=== PATIENT | male | born 1960 | race Asian ===

== ENCOUNTER 2024-02-22 12:44 | Inpatient (IN) | payer MEDICARE, OTHER ==
[~2024-02-22] VITALS: Ht 162.6 cm; Wt 71.4 kg
[2024-02-22 13:16] LABS: BASOPHILS % (AUTO) 0.7 % (0.0-2.0); EOSINOPHILS # (AUTO) 0.1 K/uL (0.0-0.7); EOSINOPHILS % (AUTO) 1.6 % (0.0-6.0); HEMATOCRIT 45 % (39-51); HEMOGLOBIN 15.2 g/dL (13.5-17.5); LYMPHOCYTES # (AUTO) 0.9 K/uL (0.8-4.8); LYMPHOCYTES % (AUTO) 15.5 % (20.0-44.0); MEAN CORPUSCULAR HEMOGLOBIN 33 PG (26.0-33.0); MEAN CORPUSCULAR HGB CONC 34 g/dl (31.0-36.0); MEAN CORPUSCULAR VOLUME 97 fL (80-96); MONOCYTES # (AUTO) 0.5 K/uL (0.1-1.30); MONOCYTES % (AUTO) 8.2 % (2.0-12.0); NEUTROPHILS # (AUTO) 4.5 K/uL (1.8-8.9); PLATELET COUNT (AUTO) 166 K/uL (150-450); RED BLOOD CELL COUNT(AUTO) 4.66 MIL/uL (4.5-6.0); RED CELL DISTRIBUTION WIDTH 13.9 % (11.5-15.0); WHITE BLOOD COUNT (AUTO) 6.1 K/uL (4.3-11.0)
[2024-02-22] MEDS: METOPROLOL TARTRATE INJ 5 MG/5 ML AMPUL IV ONE (13:42)
[2024-02-22 13:43] LABS: ALANINE AMINOTRANSFERASE 31 U/L (12-78); ALBUMIN 3.4 g/dL (3.4-5.0); ALKALINE PHOSPHATASE 182 U/L (46-116); ASPARTATE AMINOTRANSFERASE 22 U/L (15-37); BILIRUBIN,DIRECT 0.2 mg/dL (0.0-0.2); BILIRUBIN,TOTAL 0.5 mg/dL (0.2-1.0); CALCIUM, SERUM 7.6 mg/dL (8.5-10.1); CARBON DIOXIDE 28 mmol/L (21-32); CHLORIDE 100 mmol/L (98-107); CREATININE 6.7 mg/dL (0.6-1.3); GLUCOSE 165 mg/dL (74-106); NT-PRO BNP 4060 pg/mL (0-125); POTASSIUM 3.5 mmol/L (3.5-5.1); SODIUM SERUM 141 mmol/L (136-145); TOTAL PROTEIN, SERUM 8.3 g/dL (6.4-8.2); UREA NITROGEN, BLOOD 25 mg/dL (7-18)
[2024-02-22] MEDS ORDERED: ASPIRIN 325 MG TABLET ONE (13:44)
[2024-02-22] MEDS: ASPIRIN 325 MG TABLET PO ONE (13:46)
[2024-02-22] MEDS ORDERED: ONDANSETRON HCL/PF 4 MG/2 ML VIAL IVP PRN (14:00)
[2024-02-22] MEDS ORDERED: TEMAZEPAM 15 MG CAPSULE PO PRN (14:00)
[2024-02-22] MEDS ORDERED: MAG HYDROX/AL HYDROX/SIMETH 30 ML UDC PO PRN (14:00)
[2024-02-22] MEDS ORDERED: HYDROCODONE/APAP 5/325MG TABLET PO PRN (14:00)
[2024-02-22] MEDS ORDERED: MAGNESIUM HYDROXIDE 30 ML UDC PO PRN (14:00)
[2024-02-22] MEDS ORDERED: NITROGLYCERIN 0.4 MG/TAB BOTTLE SL PRN (14:00)
[2024-02-22] MEDS ORDERED: ACETAMINOPHEN 325 MG TABLET PO PRN (14:00)
[2024-02-22] MEDS ORDERED: Z GUARD REMEDY 4 OZ OINT TP PRN (14:00)
[2024-02-22] MEDS ORDERED: MORPHINE SULFATE INJ 2 MG/ML DISP.SYRIN IV PRN (14:00)
[2024-02-22] MEDS ORDERED: PANT40TA49 PO (14:21)
[2024-02-22] MEDS ORDERED: CLOP75TA15 PO (14:21)
[2024-02-22] MEDS ORDERED: ATOR80TA PO (14:21)
[2024-02-22] MEDS ORDERED: APIX2.5T PO (14:21)
[2024-02-22] MEDS ORDERED: DRON400T6 PO (14:21)
[2024-02-22] MEDS ORDERED: SEVE800T28 PO (14:21)
[2024-02-22 20:00] VITALS: BP 90/72; TEMP 98.1; O2SAT 97
[2024-02-22] MEDS: ATORVASTATIN 40 MG TABLET PO SCH (21:42)
[2024-02-22] MEDS: MIDODRINE HCL (5MG) 5 MG TABLET PO SCH (21:43)
[2024-02-23] VITALS: BP 97/39; TEMP 97.7; O2SAT 99
[2024-02-23 04:00] VITALS: BP 106/84; TEMP 98; O2SAT 95
[2024-02-23 08:00] VITALS: BP 90/72; TEMP 97.7; O2SAT 99
[2024-02-23] MEDS: SEVELAMER CARBONATE 800 MG TABLET PO SCH (08:15)
[2024-02-23] MEDS: PANTOPRAZOLE 40 MG TABLET.DR PO SCH ×2 (08:15→08:19)
[2024-02-23] MEDS: CLOPIDOGREL BISULFATE 75 MG TABLET PO SCH (08:16)
[2024-02-23] MEDS: APIXABAN 2.5 MG TABLET PO SCH (08:16)
[2024-02-23] MEDS: DRONEDARONE HYDROCHLORIDE 400 MG TABLET PO SCH (08:19)
[2024-02-23 08:36] LABS: BASOPHILS # (AUTO) 0.1 K/uL (0.0-0.2); BASOPHILS % (AUTO) 0.9 % (0.0-2.0); EOSINOPHILS # (AUTO) 0.1 K/uL (0.0-0.7); EOSINOPHILS % (AUTO) 2.3 % (0.0-6.0); HEMATOCRIT 42 % (39-51); HEMOGLOBIN 13.9 g/dL (13.5-17.5); LYMPHOCYTES # (AUTO) 1.2 K/uL (0.8-4.8); LYMPHOCYTES % (AUTO) 19.5 % (20.0-44.0); MEAN CORPUSCULAR HEMOGLOBIN 32 PG (26.0-33.0); MEAN CORPUSCULAR HGB CONC 34 g/dl (31.0-36.0); MEAN CORPUSCULAR VOLUME 96 fL (80-96); MONOCYTES # (AUTO) 0.6 K/uL (0.1-1.30); MONOCYTES % (AUTO) 9.6 % (2.0-12.0); NEUTROPHILS # (AUTO) 4.1 K/uL (1.8-8.9); NEUTROPHILS % (AUTO) 67.7 % (43.0-81.0); PLATELET COUNT (AUTO) 190 K/uL (150-450); RED BLOOD CELL COUNT(AUTO) 4.34 MIL/uL (4.5-6.0); RED CELL DISTRIBUTION WIDTH 14.4 % (11.5-15.0); WHITE BLOOD COUNT (AUTO) 6.1 K/uL (4.3-11.0)
[2024-02-23 08:53] LABS: CALCIUM, SERUM 6.1 mg/dL (8.5-10.1); MAGNESIUM 2.1 mg/dL (1.8-2.4); PHOSPHORUS 5.4 mg/dL (2.5-4.9); POTASSIUM 4.3 mmol/L (3.5-5.1)
[2024-02-23 08:59] LABS: CREATININE 10.3 mg/dL (0.6-1.3)
[2024-02-23 10:25] LABS: THYROID STIMULATING HORMONE 2.32 uIU/mL (0.358-3.74)
[2024-02-23 12:00] VITALS: BP 105/78; TEMP 97.7; O2SAT 97
[2024-02-23 16:29] VITALS: BP 90/60; TEMP 97.5; O2SAT 97
[2024-02-23 20:58] VITALS: BP 88/59; TEMP 97.5; O2SAT 99
[2024-02-24] VITALS (7 sets, daily range): BP systolic 95–130; BP diastolic 44–72; TEMP 97.2–98.2; O2SAT 96–100
== END 2024-02-24 20:50 | disposition home or self-care (01) | DRG 302 ==
LOC: ER 12:46 → TELE 14:16
PROVIDERS: ADMIT Nurse Practitioner Acute Care; ATTEND Nurse Practitioner Acute Care
PROC: 5A1D70Z Performance of Urinary Filtration, Intermittent, Less than 6 Hours Per Day (ICD-10-PCS; principal; 2024-02-24)
DX: I25.10 Atherosclerotic heart disease of native coronary artery without angina pectoris (principal); N18.6 End stage renal disease; I13.2 Hypertensive heart and chronic kidney disease with heart failure and with stage 5 chronic kidney disease, or end stage renal disease; I48.20 Chronic atrial fibrillation, unspecified; I50.32 Chronic diastolic (congestive) heart failure; E83.51 Hypocalcemia; Z95.1 Presence of aortocoronary bypass graft; E78.5 Hyperlipidemia, unspecified; D64.9 Anemia, unspecified; M89.8X9 Other specified disorders of bone, unspecified site; Z87.891 Personal history of nicotine dependence; Z99.2 Dependence on renal dialysis; Z79.01 Long term (current) use of anticoagulants; R73.9 Hyperglycemia, unspecified
CPT/HCPCS: 36415; 71045-TC; 80048-TC; 80061-TC; 80076-TC; 83735-TC; 83880; 84100-TC; 84443-TC; 84484-TC; 85025-TC; 90935-TC; 93307-TC; G0378